=== PATIENT | female | born 1990 | race Caucasian/White ===

== ENCOUNTER 2022-12-08 14:59 | Emergency (ER) | payer BC, MEDICAID ==
[~2022-12-08] VITALS: Ht 172.7 cm; Wt 120.0 kg
[2022-12-08 15:51] VITALS: BP 180/121; PULSE 113; O2SAT 98
[2022-12-08] MEDS ORDERED: ketorolac trometh inj. 60 MG/2 ML VIAL IM ONE (17:45)
[2022-12-08] MEDS ORDERED: ketorolac trometh. 30mg/ml inj. IM ONE (17:45)
[2022-12-08] MEDS ORDERED: diazepam inj 5 MG/ML inj. IM ONE (17:45)
[2022-12-08 18:12] VITALS: RESP 18
[2022-12-08 18:25] VITALS: TEMP 97.2
--- NOTE | 2022-12-08 19:22 | NUR ---
Pt. documentation completed by PHOTOGRAPHIC PLATE [employer]KER, reviewed and concur with PHOTOGRAPHIC [employer]ATE [employer]ER.
== END 2022-12-08 18:30 | disposition home or self-care (01) ==
LOC: ER 15:01
DX: S39.012A Strain of muscle, fascia and tendon of lower back, initial encounter (principal); X58.XXXA Exposure to other specified factors, initial encounter; Y93.89 Activity, other specified; Y92.89 Other specified places as the place of occurrence of the external cause; Y99.8 Other external cause status
CPT/HCPCS: 96372; 99284; J1885; J3360